=== PATIENT | female | born 1985 ===

== ENCOUNTER 2018-02-07 15:07 | Emergency (ER) | payer OTHER ==
[2018-02-07 15:34] VITALS: BP 135/90
--- NOTE | 2018-02-07 15:44 | UC ---
Throat Pain/Nasal Adebayo HPI - HPI Summary HPI Summary: had URI symps for 3 weeks, was exposed to diagnosed strep throat 2-3 days ago and now has ST and fever - History of Current Complaint Chief Complaint: UCRespiratory Stated Complaint: SORE THROAT Time Seen by Provider: 02/07/18 15:08 Hx Obtained From: Patient Hx Last Menstrual Period: 02/07/2018 ?: No Onset/Duration: Sudden Onset Pain Intensity: 2 Associated Signs & Symptoms: Positive: Fever - Allergies/Home Medications Allergies/Adverse Reactions: Allergies Allergy/AdvReac Type Severity Reaction Status Date / Time No Known Allergies Allergy Verified 02/07/18 15:28 Home Medications: Home Medications Bcp 1 tab PO DAILY 02/07/18 [History] Dm/PE/Acetaminophen/Chlorphenr [[facility] Cold Relief Multi-Symp [facility]pl] 1 each PO Q12HR PRN 02/07/18 [History Confirmed 02/07/18] PMH/Surg Hx/FS Hx/Imm Hx Previously Healthy: Yes - Surgical History Surgical History: Yes Surgery Procedure, Year, and Place: appendectomy. wisdom teeth extraction - Family History Known Family History: Positive: None Negative: Cardiac Disease, Diabetes - Social History Occupation: Employed Full-time Lives: With Family Alcohol Use: Weekly Substance Use Type: None Smoking Status (MU): Never Smoked Tobacco Review of Systems All Other Systems Reviewed And Are Negative: Yes Constitutional: Positive: Fever Skin: Positive: Negative. Negative: Rash Eyes: Positive: Negative ENT: Positive: Sore Throat. Negative: Ear Ache, Sinus Congestion Respiratory: Positive: Negative Cardiovascular: Positive: Negative Gastrointestinal: Positive: Negative Neurological: Positive: Negative Psychological: Positive: Negative Is Patient Immunocompromised?: No Physical Exam Triage Information Reviewed: Yes Appearance: Well-Appearing, No Pain Distress, Well-Nourished Vital Signs: Initial Vital Signs Temp 99.5 F 02/07/18 15:29 Pulse 69 02/07/18 15:29 Resp 18 02/07/18 15:29 BP 135/90 02/07/18 15:29 Pulse Ox 100 02/07/18 15:29 Vital Signs Reviewed: Yes Eyes: Positive: Conjunctiva Clear ENT: Positive: Pharyngeal erythema, TMs normal, Other - post nasal drip Neck exam: Normal Respiratory Exam: Normal Respiratory: Positive: Lungs clear Cardiovascular Exam: Normal Cardiovascular: Positive: RRR Neurological Exam: Normal Neurological: Positive: Alert Psychological Exam: Normal Skin Exam: Normal Skin: Negative: Rashes Throat Pain/Nasal Course/Dx - Differential Dx/Diagnosis Differential Diagnosis/HQI/PQRI: Influenza, Sinusitis, Tonsillitis, URI Provider Diagnosis: Upper respiratory infection Discharge - Sign-Out/Discharge Documenting (check all that apply): Patient Departure All imaging exams completed and their final reports reviewed: No Studies - Discharge Plan Condition: Good Disposition: HOME Patient Education Materials: Upper Respiratory Infection (ED) Referrals: No Primary Care Phys,NOPCP [Primary Care Provider] - Additional Instructions: drink plenty of fluids and rest try DayQuil for symptomatic relief. Please return if your symptoms worsen - Billing Disposition and Condition Condition: GOOD Disposition: Home
== END 2018-02-07 16:00 | disposition home or self-care (01) ==
LOC: UCEAST 15:07
DX: J06.9 Acute upper respiratory infection, unspecified (principal); Z20.828 Contact with and (suspected) exposure to other viral communicable diseases
CPT/HCPCS: 87651; 99201; G0463